=== PATIENT | male | born 1950 | race Caucasian/White ===

== ENCOUNTER 2016-12-18 07:08 | Inpatient (IN) | payer BC ==
[2016-12-10 10:59] LABS: HEMATOCRIT 44.2 % (40.0-51.0)
--- NOTE | ~2016-12-18 | OP ---
Record Of Operation [facility] [address] [place]. [address] NAME: BOB KRUSE : 52 STATUS : DIS IN PAT#: [id number] AGE: 66 ADM/REG DATE : 12/18/16 MR#: [id number] REPORT SERV DATE: 12/22/16 DICTATED BY: MJ STONE II DATE: 12/21/16 REPORT STATUS : Draft TRANSCRIBED BY: MODL DATE: 12/21/16 DATE OF PROCEDURE: 12/18/2016 PREOPERATIVE DIAGNOSES: 1. Left L5-S1 stenosis with history of L5-S1 laminectomy, remote. 2. Vertical instability. POSTOPERATIVE DIAGNOSES: 1. Left L5-S1 stenosis with history of L5-S1 laminectomy, remote. 2. Vertical instability. PROCEDURE: 1. Posterior revision facetectomy, L5-S1. 2. Interbody arthrodesis, L5-S1. 3. Application of prosthetic device, L5-S1. 4. Posterior nonsegmental instrumentation, L5-S1. 5. Posterolateral arthrodesis, L5-S1. 6. Use of local allograft substitute and bone morphogenic protein. 7. Use of the microscope and stereotactic spinal imaging. SURGEON: Mj Stone M.D. FLUIDS: 2 L lactated Ringer's. ESTIMATED BLOOD LOSS: 75 mL. DRAIN: One drain. COMPLICATIONS: No complications. ANTIBIOTIC: Preoperatively. PREOPERATIVE HISTORY: A very friendly 66-year-old gentleman, who reports some back pain, but predominantly pain radiating in the left buttock and into the posterior thigh. He does have multilevel degenerative changes but no overt stenosis in the canal higher than his lumbar spine. However, he does have a very significant lateral recess and foraminal stenosis at L5 S1. We discussed the pros and cons of continuing nonoperative care versus surgery. He overall wished to proceed with surgery. We discussed the rates of success versus failure of the surgery. Given the fact that it was mostly buttock and leg pain, I felt that surgery should give him a reasonable chance of success. The patient then had the surgery at L5-S1 previously. I felt that in order to adequately decompress the L5 and S1 nerve roots he would require an aggressive facetectomy. DESCRIPTION OF PROCEDURE: After informed consent was obtained, the patient was brought to the operating room at his request and general anesthesia achieved. He was placed in the prone position and the back was prepped and draped in a sterile fashion. After the back was Record Of Operation [facility] [address] [facility] [place]. [address] NAME: BOB KRUSE : 52 STATUS : DIS IN PAT#: [id number] AGE: 66 ADM/REG DATE : 12/18/16 MR#: [id number] REPORT SERV DATE: 12/22/16 DICTATED BY: MJ STONE II DATE: 12/21/16 REPORT STATUS : Draft TRANSCRIBED BY: DINO DATE: 12/21/16 prepped and draped in a sterile fashion, the stereotactic spinal pin was placed into the right iliac crest. The intraoperative CT scan was completed followed by completion of the intraoperative CT scan. Stereotactic guidance was then used throughout the case. Next, the minimally invasive incision was performed on the left at L5-S1. The quadrant retractor was placed followed by use of the microscope. Under microscopic visualization, the laminectomy and facetectomy was carried out. A pedicle to pedicle decompression was achieved followed by identification of the dura. The lateral recess stenosis was aggressively removed with the facetectomies as well as removal of additional ligamentum flavum. The S1 nerve root was now found to be well decompress. The L5 nerve root in particular appeared to have severe compromised from its superior facet prior to its removal. The L5 nerve root now exhibited no obvious compression. There was moderate edema about the L5 nerve root. At this point, the interbody arthrodesis was initiated with diskectomy. There was some persistent motion of the disk space, although it was significantly collapsed. The disk was now distracted and the endplates prepared. The pituitary rongeurs, Kerrison rongeurs, and the curettes were now used to create punctate bleeding bone. The area was now irrigated. Next, the prosthetic device was then placed into the anterior column. We also placed allograft substitute and bone morphogenic protein. At this point, the stereotactic guidance was used to place pedicle screws in L5 and S1. The 7.5 mm screws were placed on the right followed by percutaneous screws on the left. A repeat CT scan confirmed acceptable placement of the implants. The rods were then well assembled and final tightening performed. Next, the decortication was performed on the left. After the decortication was performed, the allograft substitute bone morphogenic protein and local autograft were placed along the decorticated surfaces. A deep drain was placed followed by standard closure and the patient was then extubated and transferred to PACU in stable condition. AUSTIN/DINO Mj Stone II, M.D. / [id number] CC: Iain Sood II, DO
[~2016-12-18 07:08] MED LIST: PROAIR HFA INH
[2016-12-19] MEDS ORDERED: V2 PO (10:58)
[2016-12-19] MEDS ORDERED: DIL2TAB PO (10:59)
== END 2016-12-19 14:39 | disposition home or self-care (01) | DRG 460 ==
LOC: SDC/OF 07:08 → 3SO 14:21
PROVIDERS: Orthopaedic Surgery
PROC: 0SG30AJ Fusion of Lumbosacral Joint with Interbody Fusion Device, Posterior Approach, Anterior Column, Open Approach (ICD-10-PCS; principal; 2016-12-18 09:00)
PROC: 4A11X4G Monitoring of Peripheral Nervous Electrical Activity, Intraoperative, External Approach (ICD-10-PCS; 2016-12-18 09:00)
DX: M51.36 Other intervertebral disc degeneration, lumbar region (principal); J44.9 Chronic obstructive pulmonary disease, unspecified; F17.210 Nicotine dependence, cigarettes, uncomplicated; J45.909 Unspecified asthma, uncomplicated
CPT/HCPCS: 82962; 85014; 85018; 87641; 88304; 88311; 93005; 97161-GP; A9270-GY; C1713; J1170; J1580; J2250; J2405; J2710; J3010; J3370